=== PATIENT | male | born 1985 | race Caucasian/White ===

== ENCOUNTER 2020-02-08 11:04 | Emergency (ER) | payer OTHER ==
[2020-02-08 11:24] VITALS: BP 126/89; PULSE 87
--- NOTE | 2020-02-08 11:35 | EDM.PDOC ---
ED HPI GENERAL MEDICAL PROBLEM - General Chief Complaint: Gastrointestinal Problem Stated Complaint: BLOOD IN STOOL AND DIZZY Time Seen by Provider: 02/08/20 11:25 - History of Present Illness INITIAL COMMENTS - FREE TEXT/NARRATIVE: 34-year old male presents the emergency room with some rectal bleeding. Intermittently seems to be associated with having BMs. Today was the worst he had of some bright red blood in the toilet along with some stool he says about one half blood half stool. He has some intermittent dizziness especially with change of position. He drinks 1-6 beers daily. He has not had problems with bleeding in the past he has had some heartburn problems. - Related Data Allergies Allergy/AdvReac Type Severity Reaction Status Date / Time No Known Allergies Allergy Verified 02/08/20 11:19 Home Meds: Home Meds Hydrocortisone Acetate [Anusol-Hc] 25 mg RC Q8H #24 supp.rect 02/08/20 [Rx] Past Medical History Other HEENT History: Wears glasses - Past Surgical History Other Musculoskeletal Surgeries/Procedures:: Meniscus repair ED ROS GENERAL - Review of Systems Review Of Systems: See Below Constitutional: Reports: No Symptoms HEENT: Reports: No Symptoms Respiratory: Reports: No Symptoms Cardiovascular: Reports: No Symptoms GI/Abdominal: Reports: Bloody Stool, Other (Reflux that is intermittent. He uses Tums on occasion for this.). Denies: Black Stool, Constipation, Diarrhea : Reports: No Symptoms Musculoskeletal: Reports: No Symptoms ED EXAM, GI/ABD - Physical Exam Exam: See Below Exam Limited By: No Limitations General Appearance: Alert, No Apparent Distress Head: Atraumatic, Normocephalic Neck: Normal Inspection, Supple, Non-Tender, Full Range of Motion Respiratory/Chest: No Respiratory Distress, Lungs Clear, Normal Breath Sounds Cardiovascular: Regular Rate, Rhythm, No Edema, No Murmur GI/Abdominal Exam: Normal Bowel Sounds, Soft, Non-Tender Rectal (Males) Exam: Normal Exam, Normal Rectal Tone, Prostate Normal, Heme + Stool (Scant amount of bright blood seen that was heme positive). No: Black Stool Extremities: Normal Inspection, No Pedal Edema Neurological: Alert, Oriented, Normal Cognition Course - Vital Signs Last Recorded V/S: Last Vital Signs Temp 36.7 C 02/08/20 11:20 Pulse 87 02/08/20 11:20 Resp 16 02/08/20 11:20 BP 126/89 02/08/20 11:20 Pulse Ox 99 02/08/20 11:20 - Orders/Labs/Meds Labs: Laboratory Tests 02/08/20 02/08/20 Range/Units 11:43 11:43 WBC 6.09 (4.23-9.07) K/mm3 RBC 4.69 (4.63-6.08) M/mm3 Hgb 15.0 D (13.7-17.5) gm/dl Hct 45.0 (40.1-51.0) % MCV 95.9 H (79.0-92.2) fl MCH 32.0 (25.7-32.2) pg MCHC 33.3 (32.2-35.5) g/dl RDW Std Deviation 42.4 (35.1-43.9) fL Plt Count 258 (163-337) K/mm3 MPV 9.9 (9.4-12.3) fl Neut % (Auto) 56.6 (34.0-67.9) % Lymph % (Auto) 29.4 (21.8-53.1) % Bennett % (Auto) 10.0 (5.3-12.2) % Eos % (Auto) 3.6 (0.8-7.0) Baso % (Auto) 0.2 (0.1-1.2) % Neut # (Auto) 3.45 (1.78-5.38) K/mm3 Lymph # (Auto) 1.79 (1.32-3.57) K/mm3 Bennett # (Auto) 0.61 (0.30-0.82) K/mm3 Eos # (Auto) 0.22 (0.04-0.54) K/mm3 Baso # (Auto) 0.01 (0.01-0.08) K/mm3 Sodium 142 (136-145) mEq/L Potassium 4.3 (3.5-5.1) mEq/L Chloride 106 (98-107) mEq/L Carbon Dioxide 25 (21-32) mEq/L Anion Gap 15.3 H (5-15) BUN 15 (7-18) mg/dL Creatinine 0.9 (0.7-1.3) mg/dL Est Cr Clr Drug Dosing 111.89 mL/min Estimated GFR (MDRD) > 60 (>60) mL/min BUN/Creatinine Ratio 16.7 (14-18) Glucose 87 (74-106) mg/dL Calcium 9.4 (8.5-10.1) mg/dL Total Bilirubin 0.5 (0.2-1.0) mg/dL AST 31 (15-37) U/L ALT 61 (16-63) U/L Alkaline Phosphatase 62 (46-116) U/L Total Protein 7.3 (6.4-8.2) g/dl Albumin 3.9 (3.4-5.0) g/dl Globulin 3.4 gm/dL Albumin/Globulin Ratio 1.2 (1-2) - Re-Assessments/Exams Free Text/Narrative Re-Assessment/Exam: 02/08/20 13:17 Laboratory evaluation is essentially unremarkable has had a slight increase in his BUN but I think this is probably more related to fluid status rather than bleeding. His rectal exam was nondiagnostic but I cannot exclude a small fissure. Will trial him on a week's worth of Anusol HC suppositories and have him follow-up with the [facility] clinic at the end of this week or early next week for recheck Departure - Departure Time of Disposition: 13:18 Disposition: Home, Self-Care 01 Clinical Impression: Rectal bleeding - Discharge Information Referrals: Mounika Stein MD [Primary Care Provider] - Forms: ED Department Discharge Additional Instructions: Return to the emergency room with any questions problems or worsening symptoms. Use the Anusol HC suppositories, these need to be placed inside your rectum, every 8 hours for the next 8 days. Follow-up at the [facility] clinic at the end of this week or early next week for recheck Sepsis Event Note - Evaluation Sepsis Screening Result: No Definite Risk - Focused Exam Vital Signs: Vital Signs Temp Pulse Resp BP Pulse Ox 02/08/20 11:20 36.7 C 87 16 126/89 99 Date Exam was Performed: 02/08/20 Time Exam was Performed: 13:17
== END 2020-02-08 13:29 | disposition home or self-care (01) ==
LOC: JD.ED 11:04
DX: K62.5 Hemorrhage of anus and rectum (principal)
CPT/HCPCS: 36415; 80053; 85025; 99282; 99284

== ENCOUNTER 2022-10-26 20:16 | Emergency (ER) | payer OTHER ==
[2022-10-26 21:45] VITALS: BP 109/64; PULSE 74
== END 2022-10-26 21:30 | disposition home or self-care (01) ==
LOC: JD.ED 20:16
DX: M77.9 Enthesopathy, unspecified (principal)
CPT/HCPCS: 99283